=== PATIENT | female | born 1955 | race Caucasian/White ===

== ENCOUNTER → 2019-04-05 | Outpatient (CLI) | payer MEDICARE, OTHER ==
[2019-04-05 19:12] LABS: African American GFR (CKD) 89.7 (60.0-200.0); Albumin 4.5 g/dL (3.80-4.90); Albumin/Globulin Ratio 2.25 (1.60-3.17); Anion Gap 8.6 mmol/L (4.00-12.00); BUN/Creat Ratio 21.25 Ratio (12.00-20.00); Calcium 9.5 mg/dL (8.7-10.3); Carbon Dioxide 26.4 mmol/L (21.6-31.8); Chol/HDL Ratio 4.45; LDL Cholesterol,Calculated 166.6 mg/dL (0.0-131.0); Non-African American GFR(CKD) 77.4 (60.0-200.0); Potassium 4.8 mmol/L (3.5-5.5); Total Bilirubin 0.6 mg/dL (0.2-1.2); Total Protein 6.5 g/dL (6.2-8.2); VLDL Calculation 26.4 mg/dL (5.00-40.00)
[2019-04-05 19:19] LABS: T4, Free (Free Thyroxine) 1.6 ng/dL (0.80-1.80)
== END | disposition home or self-care (01) ==
LOC: LABWHC1 12:27
PROVIDERS: ATTEND Family Medicine
DX: E03.9 Hypothyroidism, unspecified (principal); E78.5 Hyperlipidemia, unspecified
CPT/HCPCS: 36415; 80053; 80061; 84439; 84443

== ENCOUNTER → 2019-04-10 | Outpatient (CLI) | payer MEDICARE, OTHER ==
[2019-04-10 11:59] LABS: HCT 41.4 % (34.0-46.0); HGB 13.7 gm/dL (11.4-16.0); MCH 30.8 pg (25.0-35.0); MCHC 33.1 g/dL (31.0-37.0); MCV 93.1 fL (80.0-100.0); Mean Platelet Volume 7.4; Platelet Count 215 k/uL (150-450); RBC 4.44 m/uL (3.80-5.40); RDW 13.4 % (11.5-15.5); WBC 8.4 k/uL (3.8-10.6)
[2019-04-10 12:09] LABS: INR 0.9 (<1.2); Partial Thromboplastin Time 23.8 sec (22.0-30.0); Prothrombin Time 10.2 sec (9.0-12.0)
[2019-04-10 12:22] LABS: Appearance,Urine Clear (Clear); Bacteria,Urine Occasional /hpf; Bilirubin,Urine Negative (Negative); Blood,Urine Negative (Negative); Color,Urine Light Yellow; Glucose,Urine (UA) Negative (Negative); Ketones,Urine Negative (Negative); Leukocyte Esterase,Urine Moderate (Negative); Mucus,Urine Rare /hpf; Nitrite,Urine Negative (Negative); PH, Urine 5.5 (5.0-8.0); Protein,Urine Negative (Negative); RBC,Urine 2 /hpf (0-5); Specific Gravity,Urine 1.008 (1.001-1.035); Squamous Epithelial Cell,Urine 1 /hpf (0-4); Urobilinogen,Urine <2.0 mg/dL (<2.0); WBC,Urine 4 /hpf (0-5)
[2019-04-10 13:17] LABS: ALT 20 U/L (9-52); AST 27 U/L (14-36); African American GFR (CKD) >90 (>60 ml/min/1.73 sqM); Albumin 4.5 g/dL (3.5-5.0); Alkaline Phosphatase 70 U/L (38-126); Anion Gap 10 mmol/L; Blood Urea Nitrogen 19 mg/dL (7-17); Calcium 9.7 mg/dL (8.4-10.2); Carbon Dioxide 24 mmol/L (22-30); Chloride 105 mmol/L (98-107); Glucose 95 mg/dL (74-99); Potassium 5.2 mmol/L (3.5-5.1); Sodium 139 mmol/L (137-145); Total Bilirubin 0.8 mg/dL (0.2-1.3); Total Protein 7.9 g/dL (6.3-8.2)
== END | disposition home or self-care (01) ==
LOC: LABPAT 10:48
PROVIDERS: ATTEND Orthopaedic Surgery Sports Medicine
DX: Z01.812 Encounter for preprocedural laboratory examination (principal)
CPT/HCPCS: 80053; 81001; 85027; 85610; 85730; 87070; 93005

== ENCOUNTER 2019-04-24 10:55 | Day surgery (SDC) | payer MEDICARE, OTHER ==
[~2019-04-24 10:55] MED LIST: ACETAMINOPHEN TAB 500 MG TAB PO ONE; CLINDAMYCIN 900 MG in DEXTROSE 5% IN WATER 50 ML IVPB ONE; GABAPENTIN 300 MG CAP PO ONE; LIDOCAINE 1% 20 ML VIAL (10MG/ML) FOR IV START INTRADERMA PRN; MELOXICAM 7.5 MG TAB PO ONE; MIDAZOLAM 2 MG/2 ML VIAL IV PRN; ONDANSETRON 4 MG/2 ML VIAL IVP ONE; ROPIVACAINE 246.25 MG, EPINEPHrine 0.5 MG, KETOROLAC 30 MG, cloNIDine HCL/PF 80 MCG, WA... MISCELLANE ONE; TRANEXAMIC ACID 1,000 MG in SODIUM CHLORIDE 0.9% 100 ML IVPB ONE; fentaNYL (PF) 50 MCG/ML 2 ML AMP IV PRN; fentaNYL (PF) 50 MCG/ML 2 ML AMP IVP PRN
[2019-04-24] MEDS: LACTATED RINGERS 1,000 ML IV SCH ×2 (11:37→17:01)
[2019-04-24] MEDS ORDERED: MIDAZOLAM 2 MG/2 ML VIAL ONE (12:36)
[2019-04-24] MEDS ORDERED: fentaNYL (PF) 50 MCG/ML 2 ML AMP ONE (12:36)
[2019-04-24] MEDS ORDERED: MORPHINE SULFATE (PF) 0.3 MG/0.3 ML SYR ONE (12:36)
[2019-04-24] MEDS ORDERED: SODIUM CHLORIDE 0.9% 100 ML BAG ONE (12:36)
[2019-04-24] MEDS ORDERED: TRANEXAMIC ACID 1,000 MG/10 ML VIAL ONE (12:36)
[2019-04-24] MEDS ORDERED: hydrOXYzine PAMOATE 25 MG CAP PO PRN (12:40)
[2019-04-24] MEDS ORDERED: traMADol 50 MG TAB PO PRN (12:40)
[2019-04-24] MEDS ORDERED: ACETAMINOPHEN TAB 325 MG TAB PO PRN (12:40)
[2019-04-24] MEDS ORDERED: ONDANSETRON 4 MG/2 ML VIAL IVP PRN ×2 (12:40→16:27)
[2019-04-24] MEDS ORDERED: TEMAZEPAM 15 MG CAP PO PRN (12:40)
[2019-04-24] MEDS ORDERED: MAGNESIUM HYDROXIDE 2,400 MG/10 ML CUP PO PRN (12:40)
[2019-04-24] MEDS ORDERED: BISACODYL 10 MG SUPP RECTAL PRN (12:40)
[2019-04-24] MEDS ORDERED: HYDROmorphone 0.5 MG/0.5 ML SYRINGE IVP PRN ×3 (12:40)
[2019-04-24] MEDS ORDERED: DIAZEPAM 5 MG TAB PO PRN (12:40)
[2019-04-24] MEDS ORDERED: NA PHOS,M-B/NA PHOS,DI-BA 133 ML ENEMA RECTAL PRN (12:40)
[2019-04-24] MEDS ORDERED: NALOXONE 0.4 MG/ML 1 ML VIAL IV PRN ×2 (12:40→16:27)
[2019-04-24] MEDS ORDERED: HYDROcodone/APAP 7.5-325MG 1 EACH TAB PO PRN ×2 (12:40→12:44)
[2019-04-24] MEDS ORDERED: LACTATED RINGERS 1,000 ML IV ONE (13:15)
[2019-04-24] MEDS ORDERED: VANCOMYCIN IV PER PHARMACY 1 EACH MISC MISCELLANE PRN (14:42)
--- NOTE | 2019-04-24 15:22 | XR ---
EXAMINATION TYPE: XR knee limited LT DATE OF EXAM: 04/24/2019 CLINICAL HISTORY: Left knee pain and arthritis status post total knee replacement. TECHNIQUE: Portable AP and crosstable lateral views of the left knee are obtained immediately postop eratively. COMPARISON: None FINDINGS: Metallic hardware from total left knee arthroplasty is seen and appears satisfactory in al ignment and position. There is evidence of recent surgery with diffuse subcutaneous gas and soft tis bryon swelling noted. IMPRESSION: METALLIC HARDWARE FROM TOTAL LEFT KNEE ARTHROPLASTY IS SATISFACTORY IN ALIGNMENT.
[2019-04-24] MEDS ORDERED: diphenhydrAMINE 50 MG/ML 1 ML VIAL IVP PRN (16:27)
[2019-04-24] MEDS ORDERED: NALBUPHINE 10 MG/ML (1 ML AMP) IV PRN (16:27)
[2019-04-24 17:05] VITALS: BMI 36.4
[2019-04-24] MEDS ORDERED: VANCOMYCIN 1,250 MG in SODIUM CHLORIDE 0.9% 250 ML IVPB ONE (21:00)
[2019-04-24] MEDS ORDERED: SENNOSIDES-DOCUSATE SODIUM 1 EACH TAB PO SCH (21:00)
[2019-04-24] MEDS: ASPIRIN 325 MG TAB PO SCH (21:02)
[2019-04-25] MEDS: LACTATED RINGERS 1,000 ML IV SCH ×3 (01:49→10:54)
--- NOTE | 2019-04-25 05:34 | OP ---
OPERATIVE REPORT DATE OF SURGERY: 04/24/2019 SURGEON: Simon Michel MD. MACHINIST FIRST CLASS: STUART Cleveland. PREOPERATIVE DIAGNOSIS: Left knee osteoarthrosis. POSTOPERATIVE DIAGNOSIS: Left knee osteoarthrosis. OPERATION: Left total knee arthroplasty. ANESTHESIA: Spinal sedation. ESTIMATED BLOOD LOSS: 100 mL. TOURNIQUET TIME: 58 minutes at 250 mmHg. COMPLICATIONS: None apparent. DRAINS: None. DISPOSITION: Postanesthesia care unit. INDICATIONS: Zainab is a very pleasant 63-year-old female with longstanding history of left knee pain. History and physical examination are consistent with advanced left knee osteoarthrosis. She has been through significant nonoperative management up to this point. Further treatment options were discussed and she has decided to go forward with the left total knee arthroplasty. The risks of procedure were discussed with her in detail. These risks include, but are not limited to risk of infection, nerve damage, bleeding, pain, and a small risk of deep vein thrombosis which could lead to fatal pulmonary embolism. There is also risk of loosening of the implant which could require revision operation. The patient understands these risks. All of her questions were answered to her satisfaction. An appropriate informed consent was obtained. DESCRIPTION OF THE PROCEDURE: The patient was identified in the preoperative holding area. Surgical site was marked by both the patient and myself. She was given 900 mg of clindamycin IV for prophylactic purposes. She was then transferred to the operative suite. She was placed supine on the operating room table. Spinal anesthetic was then administered and dosed per the anesthesia department without apparent complication. Examination under anesthesia was then performed. The patient was 2 to 3 degrees shy of full extension. She had 90 degrees of flexion. The medial collateral ligament, lateral collateral ligament and posterior cruciate ligaments were stable. Tourniquet was then placed high on the left upper thigh well-padded in preparation for surgery. The patient's left lower extremity was then prepped and draped in usual sterile fashion. Standard surgical pause was undertaken to ensure that we were operating on the correct site and that appropriate preoperative antibiotics had been given. All staff were in agreement and we proceeded. The outlines of the patella were marked surgical pen. A planned 12 cm vertical incision centered over the patella and was marked with surgical pen. Leg was exsanguinated with an Esmarch dressing. The knee was then flexed and the tourniquet inflated to 250 mmHg. The total tourniquet time for the procedure was 58 minutes. Incision was then made with a 10 blade scalpel. Dissection carried down sharply overlying fascia. Great care was taken to minimize the skin flaps. The knee was then exposed using a standard medial parapatellar approach. A small cuff of quadriceps tendon was then left for suturing. She was in a bit of varus preoperatively. A standard medial release was then made. The superficial medial collateral ligament was dissected off the bone around to the posterior aspect of the proximal tibia. The medial meniscus was then excised as well. The lateral meniscus was also released anteriorly. The leg was then externally rotated. The patella was everted. The knee was flexed. The retractor was then placed to protect the collateral ligaments. I then proceeded to remove the infrapatellar fat pad. This was excised sharply tangentially with the fibers of the patellar tendon. I then proceeded to remove peripheral osteophytes. This was done with a rongeur. I then proceeded with the distal femoral resection. She did have near full extension. A planned 9 mm resection was then done. The femoral canal was then entered in midline of the femur approximately 10 mm anterior to the origin of the posterior cruciate ligament. The leesa was then advanced down the center of the femur and placed intramedullary. Based on the preoperative radiographs, the angle between the anatomic and mechanical axis of the femur was approximately 4 to 5 degrees. The valgus angle of this femoral cutting guide was then set at 4 degrees for the left knee. This femoral cutting guide was then advanced over the intramedullary leesa. This was seated firmly against the femur. I then as mentioned planned to take 9 mm off the distal femur. The cutting block was then secured onto the femur with pins. The jig was then removed and the distal femoral cut was made through the slot of the block. The pins were then removed. The distal femoral cutting block was removed. The accuracy of the distal femoral cuts was checked with 2 flat bars. I then proceeded with the femoral sizing. The posterior referencing sizing guide was held firmly against the resected distal surface of the femur. The posterior condyles were resting on the posterior plane of the guide. The sizing stylus was then placed on the anterior femur. The size was measured as a size 5. I then assessed for femoral rotation. Plan was for 3 degrees of external rotation. Three degrees of external rotation was placed onto the jig. These holes were then marked. I then confirmed the rotation by 3 separate methods. This was done using epicondylar axis as well as Whitesides line and posterior referencing. It was deemed that the external rotation was proper. I then went forward with placing the femoral cutting block. This was placed over the previously placed pin holes. The Uriel wing was then placed onto the anterior slots to ensure that we would not notch the anterior femur with the anterior femoral cut. I then proceeded with the anterior femoral cut. This was flushed with the anterior cortex of the femur. Posterior cuts were then made followed by the anterior chamfer cut, then the posterior chamfer cut. The cutting block was then removed. Throughout the resection, the collateral ligaments were protected with retractors. I then placed a trial size 5 femur. It fit very nice medial-lateral and fit flush with the distal end of the femur. The drill holes were then made. I then proceeded with the tibial cut. I planned for cruciate-retaining knee. The guide was placed and set for varus, valgus and for slope. The height set for approximate 2 mm resection from the medial tibial plateau which was the lower side. I was happy with the alignment and the amount of resection. The cutting block was then pinned to the proximal tibia. The alignment leesa was removed. The proximal tibia was resected with a reciprocating saw. Again this was done with retractors protecting the collateral ligaments as well as the posterior cruciate ligament. I then proceeded to evaluate the flexion and extension gaps. A 10 mm block was then placed. The flexion and extension gaps were equal. I then proceed with resection of posterior osteophytes. She had very minimal posterior osteophytes. This was done using a curved osteotome. This resected the posterior osteophytes and posterior capsule stripping was done off the posterior aspect of the femur at this time. The osteophytes were removed. I then proceeded with resection of the patella. The thickness of the patella was measured using the caliper. The thickness was 22 mm. The thickness of the anticipated patellar dome was taken into account. The resection was then performed and confirmed to be equal in 4 quadrants using a caliper. Approximately 14 mm of bone remained after resection. A 29 x 8 mm standard patellar trial was then placed. The holes were drilled. The trial was then placed. I then proceeded with the sizing tibial plate. A size C tibial plate fit very nicely. I then placed the trial femur, the tibial tray and the patellar button. A 10 mm trial tibial insert was also placed. The components fit very nicely. She had full extension and flexion. The extension and flexion gaps were equal and stable to both varus and valgus stress. The patella tracked appropriately. The tibial tray rotation was then marked with a Bovie. This was externally rotated properly. I then proceeded with tibial preparation. I first drilled the femoral holes, removed femoral component. The tibial tray was then set for proper external rotations as well as mediolateral placement onto the tibia. It was then pinned into place. I then proceeded with punching the keel. I then decided to proceed with cementing of all of our components. The knee was thoroughly irrigated with sterile saline solution via pulse lavage. The lateral genicular artery was identified and cauterized. All blood was removed from the bone of the tibia, femur and patella with pulse lavage. I then proceeded with cementing. Two packs of antibiotic bone cement prepared on the back table by the surgical scheduler. I then proceed with cementing the tibia first. The cement was impacted into the keel as well as deeply seated in the bone. A second coat of cement was then placed. The tibia was then impacted into place. Excess cement was removed with Cushings and jokers. I then proceeded with cementing of the femoral component. The femoral component was also cemented using standard technique. Excess cement was removed. A 10 mm trial insert was placed into the knee. It was brought in full extension with a constant axial load placed until the cement had hardened. The patellar component was then cemented. This was held firmly with a compressive device until the cement had dried. When the cement had dried, the knee was taken out of extension. All excess cement was removed from around the prosthesis. I then trialed the knee with a 10 mm insert. The flexion and extension gaps were appropriate. The knee was stable. It came into full extension. I decided to go forward with a 10 mm cross-linked cruciate-retaining tibial insert. Polyethylene was then placed on the tibial tray and locked into place. The knee was then reduced. The knee was again further irrigated with sterile saline solution with antibiotic added. The tourniquet was then deflated. Total tourniquet time for the procedure was 58 minutes at 250 mmHg. Final components were a Ryan Persona size 5 cruciate-retaining femoral component, a size C tibial tray and a 10 mm medial congruent cruciate-retaining polyethylene insert and a 29 x 8 mm patella. I then proceeded with closure. Again, the knee was thoroughly irrigated. The quadriceps tendon and the medial retinaculum were reapproximated with #2 Ethibond suture. The extensor mechanism was then closed with a running #2 Quill suture. Subcutaneous tissues were then closed with 2-0 Vicryl interrupted suture. The skin was closed with a running 3-0 Quill suture. Dermabond was applied to the incision. Sterile compressive dressing was then applied. All sponge and needle counts were deemed correct prior to closure. The patient tolerated the procedure without apparent complication. She was transferred to recovery room in stable condition. MMODL / IJN: [id number] /
[2019-04-25 07:47] VITALS: PULSE 69; RESP 18; TEMP 97.9
[2019-04-25 08:34] LABS: Basophils % (A) 0 %; Eosinophils # (A) 0.1 k/uL (0-0.7); Eosinophils % (A) 1 %; HCT 35.4 % (34.0-46.0); HGB 11.3 gm/dL (11.4-16.0); Lymphocytes # (A) 1.3 k/uL (1.0-4.8); Lymphocytes % (A) 13 %; MCH 30.9 pg (25.0-35.0); MCHC 32.1 g/dL (31.0-37.0); MCV 96.5 fL (80.0-100.0); Mean Platelet Volume 7.3; Monocytes # (A) 0.4 k/uL (0-1.0); Monocytes % (A) 4 %; Neutrophils # (A) 7.9 k/uL (1.3-7.7); Neutrophils % (A) 81 %; Platelet Count 198 k/uL (150-450); RBC 3.67 m/uL (3.80-5.40); RDW 13.7 % (11.5-15.5); WBC 9.8 k/uL (3.8-10.6)
[2019-04-25] MEDS: ASPIRIN 325 MG TAB PO SCH (08:34)
--- NOTE | 2019-04-25 10:26 | P.DS ---
Providers Attending physician: Simon Michel Consults: 04/24/19 12:40 Consult Physician Routine Consulting Provider: Bran Paz Consult Reason/Comments: post op medical management Do you want consulting provider notified?: Yes Primary care physician: Janelle Gan MD - Discharge Diagnosis(es) (1) S/P total knee arthroplasty Patient was admitted to the OR on 04/24/2019 to undergo a left total knee arthr oplasty. She had failed conservative measures as an outpatient and desired to proceed with elective surgery after given informed consent. She underwent the above procedure which she tolerated well without complication. Postoperative hospital course has remained without complication. On day of discharge she is afebrile, vital signs stable, labs within acceptable ranges, tolerating by mouth meds and diet, voiding without difficulty, positive flatus, denies abdominal pain or calf pain, pain is controlled on oral pain medication and has no new complaints. Wound is benign, neurovascular status is intact, calf is soft and nontender, abdomen soft and nontender. Review of systems is negative for numbness, tingling, fever, chills, chest pain, shortness of breath, nausea, vomiting, dizziness, headaches, slurred speech or other. Current Visit: Yes Status: Acute Priority: Medium Procedures: Left TKA Patient Condition at Discharge: Good Plan - Discharge Summary Discharge Rx Participant: Yes New Discharge Prescriptions: New Aspirin 325 mg PO BID #60 tab Docusate [Colace] 100 mg PO BID #60 capsule HYDROcodone/APAP 7.5-325MG [[place] 7.5-325] 1 - 2 each PO Q6HR PRN #56 tab PRN Reason: Pain No Action Levothyroxine Sodium [Synthroid] 137 mcg PO DAILY Atorvastatin [Lipitor] 10 mg PO DAILY Sulfamethox-Tmp 400-80Mg [Bactrim SS 400-80 mg] 1 tab PO BID Discharge Medication List Atorvastatin [Lipitor] 10 mg PO DAILY 04/22/19 [History] Levothyroxine Sodium [Synthroid] 137 mcg PO DAILY 04/22/19 [History] Sulfamethox-Tmp 400-80Mg [Bactrim SS 400-80 mg] 1 tab PO BID 04/24/19 [History] Aspirin 325 mg PO BID #60 tab 04/25/19 [Rx] Docusate [Colace] 100 mg PO BID #60 capsule 04/25/19 [Rx] HYDROcodone/APAP 7.5-325MG [[place] 7.5-325] 1 - 2 each PO Q6HR PRN #56 tab 04/25/19 [Rx] Follow up Appointment(s)/Referral(s): [facility] [NON-STAFF] - As Needed (walker) Simon Michel MD [STAFF PHYSICIAN] - 1 Week Activity/Diet/Wound Care/Special Instructions: Keep wound clean and dry Take meds as directed Follow-up with Dr. Michel in office Weight bear as tolerated May shower in 3 days if no bleeding Discharge Disposition: HOME WITH HOME HEALTH SERVICES
--- NOTE | 2019-04-25 10:43 | P.CONS ---
History of Present Illness - Reason for Consult Consult date: 04/25/19 HLD Requesting physician: Simon Michel - Chief Complaint left knee pain - History of Present Illness Patient is a 63-year-old female past medical history of morbid obesity with BMI 36.6, osteoarthritis, prior left knee meniscal tear, hypothyroidism, and dyslipidemia who presented for elective left total knee arthroplasty. She had been trying conservative management such as pain medications, cortisone injection, and physical therapy but her pain continued to worsen. She underwent left total knee arthroplasty with Dr. Michel on 04/24 without any immediate pos toperative complications. After being admitted to the surgical floor she is developed nausea and vomiting. Patient seen and examined at bedside. She states that every time she sits up she gets dizzy, becomes nauseous and then has an episode of vomiting. After she vomits once the feeling has resolved and she is back to baseline. She does report that she recently restarted her cholesterol medications approximately 10 days ago. She also had an episode of food poisoning with diarrhea but no vo miting approximately 2 weeks ago. She is otherwise not had any other incidents of nausea, vomiting, or diarrhea. When she sits for and she denies any fainting feeling, chest pain, shortness of breath, or abdominal pain. She lives at home with her and does not use any assistive devices at baseline. Review of Systems Pertinent positives and negatives as discussed in HPI, a complete review of systems was performed and all other systems are negative. Past Medical History Past Medical History: Hyperlipidemia, Osteoarthritis (OA), Thyroid Disorder History of Any Multi-Drug Resistant Organisms: None Reported Past Surgical History: Section Additional Past Surgical History / Comment(s): c-sect x3. COLONOSCOPY. DEVIA DANIA SEPTUM SX. Left knee arthroscopy with repair of meniscal tear Past Anesthesia/Blood Transfusion Reactions: No Reported Reaction Past Psychological History: No Psychological Hx Reported Smoking Status: Never smoker Past Alcohol Use History: None Reported Past Drug Use History: None Reported Additional History: Lives at home with her , no assistive devices - Past Family History Father Family Medical History: Cancer Additional Family Medical History / Comment(s): colon cancer Medications and Allergies Home Medications Medication Instructions Recorded Confirmed Type Atorvastatin [Lipitor] 10 mg PO DAILY 04/22/19 04/22/19 History Levothyroxine Sodium [Synthroid] 137 mcg PO DAILY 04/22/19 04/22/19 History Sulfamethox-Tmp 400-80Mg [Bactrim 1 tab PO BID 04/24/19 04/24/19 History SS 400-80 mg] Aspirin 325 mg PO BID #60 tab 04/25/19 Rx Docusate [Colace] 100 mg PO BID #60 capsule 04/25/19 Rx HYDROcodone/APAP 7.5-325MG [[place] 1 - 2 each PO Q6HR PRN #56 tab 04/25/19 Rx 7.5-325] Allergies Allergy/AdvReac Type Severity Reaction Status Date / Time Penicillins Allergy Anaphylaxis Verified 04/22/19 08:51 promethazine [From Phenergan] Allergy Unknown Verified 04/24/19 11:24 Childhood meperidine [From Demerol] AdvReac Hallucinati Verified 04/24/19 11:23 ons Physical Exam Osteopathic Statement: *. No significant issues noted on an osteopathic structural exam other than those noted in the History and Physical/Consult. Vitals: Vital Signs Temp Pulse Resp BP BP Pulse Ox 04/25/19 07:00 97.9 F 69 18 115/80 96 04/25/19 04:58 98 04/25/19 04:53 63 04/25/19 04:52 98 04/25/19 01:27 12 04/25/19 00:17 97.6 F 62 14 111/58 99 04/24/19 19:36 98/63 04/24/19 19:31 55 L 12 95/65 98 04/24/19 19:05 96.2 F L 04/24/19 18:23 54 L 96/62 96 04/24/19 18:08 54 L 95/61 96 04/24/19 17:55 96 04/24/19 17:44 57 L 101/67 98 04/24/19 17:38 52 L 99/65 98 04/24/19 17:29 54 L 99/65 04/24/19 17:14 52 L 97/63 97 04/24/19 17:08 57 L 92/62 96 04/24/19 16:55 16 04/24/19 16:54 60 16 102/64 94 L 04/24/19 15:46 66 16 99/65 95 04/24/19 15:30 64 16 99/66 95 04/24/19 15:15 63 16 119/66 99 04/24/19 15:00 61 16 112/55 99 04/24/19 14:43 96.8 F L 79 16 113/56 95 04/24/19 11:24 97.9 F 70 16 116/63 95 Intake and Output 04/24/19 04/25/19 04/25/19 22:59 06:59 14:59 Intake Total 50 10 425 Balance 50 10 425 Intake: IV 50 Oral 10 425 Other: Voiding Method Toilet # Voids 1 1 General: non toxic, no distress, appears at stated age, obese Derm: no unusual rashes/lesions no unusual ecchymoses, warm, dry Head: atraumatic, normocephalic, symmetric Eyes: EOMI, no lid lag, anicteric sclera, pupils equal round reactive to light ENT: Nose and ears atraumatic, no thrush, no pharyngeal erythema Neck: No thyromegaly, no cervical lymphadenopathy, trachea midline, supple Mouth: no lip lesion, mucus membranes moist Cardiovascular: S1S2 reg, no murmur, positive posterior tibial pulse bilateral, , capillary refill less than 2 seconds Lungs: Decreased breath sounds bilateral, no rhonchi, no rales , no accessory muscle use Abdominal: soft, nontender to palpation, no guarding, no appreciable organome marleny, normal bowel sounds Ext: no gross muscle atrophy, muscle strength 5 out of 5 in upper extremities grossly, no contractures, , and dressing over left knee with mild edema Neuro: CN II-XI grossly intact, light touch intact all 4 extremities, finger to nose within normal limits, Psych: Alert, oriented, appropriate affect Results CBC & Chem 7: 04/25/19 07:40 04/24/19 11:35 Labs: Abnormal Lab Results - Last 24 Hours (Table) 04/25/19 Range/Units 07:40 RBC 3.67 L (3.80-5.40) m/uL Hgb 11.3 L (11.4-16.0) gm/dL Neutrophils # 7.9 H (1.3-7.7) k/uL Assessment and Plan Assessment: Postoperative nausea and vomiting -Try Zofran -Check orthostatic vitals -Not likely due to narcotics Left knee arthritis s/p TKA -Controlled -PT/OT -Plans for outpatient physical therapy Dyslipidemia -Continue statin Hypothyroidism -Continue with Synthroid Medically optimized for discharge once nausea and vomiting resolved. If orthostatics positive for group 1 L fluid bolus and recheck. Follow-up with Dr. Gan in 1 week.
[2019-04-25 10:54] VITALS: BP 113/68
[2019-04-26] MEDS ORDERED: MULTIVITAMINS, THERA 1 EACH TAB PO SCH (12:00)
== END 2019-04-25 13:12 | disposition home health service (06) ==
LOC: OR 10:55 → 4SSUR 16:10 → OR 04-25 13:12
PROVIDERS: ATTEND Orthopaedic Surgery Sports Medicine
DX: M17.12 Unilateral primary osteoarthritis, left knee (principal); M25.762 Osteophyte, left knee; I10 Essential (primary) hypertension; E78.5 Hyperlipidemia, unspecified; E03.9 Hypothyroidism, unspecified; R63.5 Abnormal weight gain; Z68.36 Body mass index [BMI] 36.0-36.9, adult; Z97.3 Presence of spectacles and contact lenses; Z83.3 Family history of diabetes mellitus; Z82.49 Family history of ischemic heart disease and other diseases of the circulatory system; Z79.1 Long term (current) use of non-steroidal anti-inflammatories (NSAID); Z79.82 Long term (current) use of aspirin; Z79.3 Long term (current) use of hormonal contraceptives; Z79.891 Long term (current) use of opiate analgesic; Z79.52 Long term (current) use of systemic steroids; Z79.899 Other long term (current) drug therapy; Z80.0 Family history of malignant neoplasm of digestive organs; Z88.5 Allergy status to narcotic agent; Z88.0 Allergy status to penicillin; Z88.8 Allergy status to other drugs, medicaments and biological substances
CPT/HCPCS: 97161; 84132; 85025; 88300; 73560; 27447; C1776; C1713; J2250; J0171; J3370; J2405; J2274; J3010; J1885; J2795; J0735

== ENCOUNTER → 2019-05-03 | Outpatient (CLI) | payer MEDICARE, OTHER ==
--- NOTE | 2019-05-14 10:54 | MM ---
Reason for exam: screening (asymptomatic). Last mammogram was performed 2 years and 7 months ago. History: Patient is postmenopausal. Physical Findings: A clinical breast exam by your physician is recommended on an annual basis and results should be correlated with mammographic findings. MG 3D Screening Mammo W/Cad Bilateral CC and MLO view(s) were taken. Prior study comparison: October 14, 2016, mammogram, performed at [place]. September 25, 2015, mammogram, performed at [place]. Benign appearing bilateral calcifications. No suspicious abnormality. No significant changes when compared with prior studies. ASSESSMENT: Benign, BI-RAD 2 RECOMMENDATION: Routine screening mammogram of both breasts in 1 year.
== END | disposition home or self-care (01) ==
LOC: RADMAMWWP 10:11
PROVIDERS: ATTEND Family Medicine
DX: Z12.31 Encounter for screening mammogram for malignant neoplasm of breast (principal)
CPT/HCPCS: 77063; 77067

== ENCOUNTER → 2021-02-24 | Outpatient (CLI) | payer MEDICARE, OTHER ==
--- NOTE | 2021-02-24 16:05 | BD ---
EXAMINATION TYPE: Axial Bone Density DATE OF EXAM: 02/24/2021 COMPARISON: NONE CLINICAL HISTORY: 65 YR OLD FEMALE.....ICD-10 CODE: M89.9 DISORDER OF BD Height: 59 Weight: 198 FRAX RISK QUESTIONS: History of Fracture in Adulthood: YES RISK FACTORS HISTORY OF: Spine Fracture: THORACIC SPINE FXS AN ADULT History of Wrist Fracture: LT ARM, IN 3RD GRADE Postmenopausal woman: YES AT 50 YRS OLD Lost more than 2 inches in height since high school: YES Hyperparathyroidism: NO Adrenal Insufficiency: NO MEDICATIONS: Thyroid Medications: YES, SYNTHROID, FOR 25 YRS Additional Medications: PROZAC, STATIN FOR CHOLESTEROL, VIT D AND VIT B12, Additional History: ANXIETY, CHOLESTEROL, THYROID, ARTHRITIS, TKR, EXAM MEASUREMENTS: Bone mineral densitometry was performed using the Topic System. Bone mineral density as measured about the Lumbar spine is: ----- L1-L4(G/cm2): 1.244 T Score Values are as follows: ----- L1: 0.1 ----- L2: 0.1 ----- L3: 0.6 ----- L4: 1.2 ----- L1-L4: 0.5 Bone mineral density FIRST BONE DENSITY AT [facility] Bone mineral density about the R hip (g/cm2): 1.248 Bone mineral density about the L hip (g/cm2): 1.162 T Score values are as follows: -----R Neck: 0.8 -----L Neck: 0.0 -----R Total: 1.9 -----L Total: 1.2 Bone mineral density FIRST BONE DENSTIY STUDY AT [facility] FRAX%s: THERE IS A 10.1% CHANCE FOR A MAJOR OSTEOPOROTIC FX AND A 0.3% FOR HIP......PROBABILITY FOR FX IN 10 YRS TIME IMPRESSION: Normal (Values between +1 and -1 indicate normal bone mass). Consider repeating this study in 5 year s or sooner if there is some new clinical indication. NOTE: T-SCORE=SD OF THE YOUNG ADULT MEAN.
--- NOTE | 2021-03-01 12:34 | MM ---
Reason for exam: screening (asymptomatic). Last mammogram was performed 1 year and 10 months ago. History: Patient is postmenopausal. Physical Findings: A clinical breast exam by your physician is recommended on an annual basis and results should be correlated with mammographic findings. MG 3D Screening Mammo W/Cad Bilateral CC and MLO view(s) were taken. Prior study comparison: May 03, 2019, bilateral MG 3d screening mammo w/cad. October 14, 2016, mammogram, performed at [place]. There are scattered fibroglandular densities. No significant changes when compared with prior studies. ASSESSMENT: Benign, BI-RAD 2 RECOMMENDATION: Routine screening mammogram of both breasts in 1 year.
== END | disposition home or self-care (01) ==
LOC: RADBDWWP 12:33
PROVIDERS: ATTEND Internal Medicine
DX: Z12.31 Encounter for screening mammogram for malignant neoplasm of breast (principal); Z78.0 Asymptomatic menopausal state
CPT/HCPCS: 77063; 77067; 77080

== ENCOUNTER 2021-12-17 12:58 | Emergency (ER) | payer MEDICARE, OTHER ==
[2021-12-17 14:26] LABS: Amorphous Sediment,Urine Occasional /hpf; Appearance,Urine Clear (Clear); Bacteria,Urine Occasional /hpf; Bilirubin,Urine Negative (Negative); Blood,Urine Small (Negative); Color,Urine Yellow; Glucose,Urine (UA) Negative (Negative); Ketones,Urine Negative (Negative); Leukocyte Esterase,Urine Moderate (Negative); Mucus,Urine Rare /hpf; Nitrite,Urine Negative (Negative); Protein,Urine Negative (Negative); RBC,Urine 2 /hpf (0-5); Specific Gravity,Urine 1.015 (1.001-1.035); Squamous Epithelial Cell,Urine 1 /hpf (0-4); WBC,Urine 11 /hpf (0-5)
[2021-12-17] MEDS ORDERED: ONDANSETRON 4 MG/2 ML VIAL IVP STA (15:39)
[2021-12-17] MEDS ORDERED: SODIUM CHLORIDE 0.9% 1,000 ML IV STA (15:39)
--- NOTE | 2021-12-17 16:39 | ED ---
Abdominal Pain HPI - General Chief Complaint: Abdominal Pain Stated Complaint: Abd Pain Time Seen by Provider: 12/17/21 15:23 Source: patient, family, RN notes reviewed Limitations: no limitations - History of Present Illness Initial Comments: This is a 66-year-old female who presents to the emergency department for abdominal pain. Symptoms began 2 days ago. States that she has right flank pain that wraps around into the right lower quadrant. She had similar symptoms back in August, which lasted a week. She was not evaluated at that time. She has had nausea but no vomiting. Denies any history of kidney stones, dysuria, or hematuria. Denies any fevers, chills, sore throat, cough, dyspnea, chest pain, palpitations, abdominal pain, nausea, vomiting, diarrhea, back pain, or headaches. MD Complaint: abdominal pain, flank pain Onset/Timin -: days(s) Location: R flank Radiation: RLQ - Related Data Home Medications Medication Instructions Recorded Confirmed Atorvastatin Calcium [Lipitor] 20 mg PO DAILY 12/17/21 12/17/21 Levothyroxine Sodium [Synthroid] 100 mcg PO DAILY 12/17/21 12/17/21 Previous Rx's Medication Instructions Recorded Doxycycline [Vibramycin] 100 mg PO BID 5 Days #10 capsule 12/17/21 Ondansetron Odt [Zofran Odt] 4 mg PO Q8HR PRN #10 tab 12/17/21 Allergies Allergy/AdvReac Type Severity Reaction Status Date / Time Penicillins Allergy Anaphylaxis Verified 12/17/21 17:22 promethazine [From Phenergan] Allergy Unknown Verified 12/17/21 17:22 meperidine [From Demerol] AdvReac Hallucinati Verified 12/17/21 17:22 ons Review of Systems ROS Statement: Those systems with pertinent positive or pertinent negative responses have been documented in the HPI. ROS Other: All systems not noted in ROS Statement are negative. Past Medical History Past Medical History: Thyroid Disorder History of Any Multi-Drug Resistant Organisms: None Reported Additional Past Surgical History / Comment(s): c-sect x3. COLONOSCOPY. DE VIATED SEPTUM SX. Left knee arthroscopy with repair of meniscal tear Past Psychological History: No Psychological Hx Reported Smoking Status: Never smoker Past Alcohol Use History: Rare Past Drug Use History: None Reported - Past Family History Father Additional Family Medical History / Comment(s): colon cancer General Exam Limitations: no limitations General appearance: alert, in no apparent distress Head exam: Present: atraumatic, normocephalic, normal inspection Respiratory exam: Present: normal lung sounds bilaterally. Absent: respiratory distress, wheezes, rales, rhonchi, stridor Cardiovascular Exam: Present: regular rate, normal rhythm, normal heart sounds. Absent: systolic murmur, diastolic murmur, rubs, gallop, clicks GI/Abdominal exam: Present: soft, tenderness (RLQ), normal bowel sounds. Absent: distended, guarding, rebound, rigid Back exam: Present: CVA tenderness (R). Absent: CVA tenderness (L) Neurological exam: Present: alert, oriented X3, CN II-XII intact Psychiatric exam: Present: normal affect, normal mood Skin exam: Present: warm, dry, intact, normal color. Absent: rash Course Vital Signs 12/17/21 12/17/21 13:04 18:47 Temperature 98.4 F 98.8 F Pulse Rate 80 65 Respiratory 18 16 Rate Blood Pressure 122/60 107/52 O2 Sat by Pulse 96 98 Oximetry Medical Decision Making - Medical Decision Making This is a 66-year-old female who presents to the emergency department for right lower quadrant pain. Lab work was nonactionable and urinalysis revealed a small amount of blood in the urine. Computed tomography scan of the abdomen and pelvis revealed a hiatal hernia but no acute abdominal pathologies, however it did note a right middle lobe pneumatic infiltrate. Findings were reviewed with the patient, and she did note that she had been experiencing a cough and some shortness of breath for the last 3 days. Discussed that this may be related to COVID or influenza, however she declined to be swabbed at this time, stating that she really just wanted to go home. Given the associated respiratory symptoms, will treat patient with a 5 day course of doxycycline. Prescription for Zofran and sent to the pharmacy as well in the event she experiences any additional nausea. We also discussed the frequent PVCs on her EKG. 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 States that she's had multiple EKGs without any abnormalities and notes that she sometimes feels palpitations. Advised that the EKGs are a small snapshot in time, and may not black pickler on intermittent findings like this. Her RN did note an irregular heartbeat on initial auscultation, with what appeared to sound like an extra beat. This was just prior to her EKG. When I had gone to auscultate the patient afterwards, the irregular heartbeat was no longer present. We discussed that she should follow up with her primary care provider next week to discuss a Holter monitor on an outpatient basis. Return precautions reviewed in depth, the patient is instructed to return to the emergency department with any new, worsening, or concerning symptoms. Patient verbalized understanding. This case was discussed in detail with the attending ED physician. Presentation, findings, and treatment plan discussed in detail as well. - Lab Data Result diagrams: 12/17/21 16:31 12/17/21 16:31 Lab Results 12/17/21 12/17/21 12/17/21 Range/Units 13:35 16:31 16:31 WBC 6.5 (3.8-10.6) k/uL RBC 4.40 (3.80-5.40) m/uL Hgb 13.2 (11.4-16.0) gm/dL Hct 41.9 (34.0-46.0) % MCV 95.3 (80.0-100.0) fL MCH 30.0 (25.0-35.0) pg MCHC 31.4 (31.0-37.0) g/dL RDW 13.2 (11.5-15.5) % Plt Count 195 (150-450) k/uL MPV 8.3 Neutrophils % 71 % Lymphocytes % 17 % Monocytes % 7 % Eosinophils % 3 % Basophils % 1 % Neutrophils # 4.7 (1.3-7.7) k/uL Lymphocytes # 1.1 (1.0-4.8) k/uL Monocytes # 0.4 (0-1.0) k/uL Eosinophils # 0.2 (0-0.7) k/uL Basophils # 0.0 (0-0.2) k/uL Sodium 137 (137-145) mmol/L Potassium 3.8 (3.5-5.1) mmol/L Chloride 102 (98-107) mmol/L Carbon Dioxide 27 (22-30) mmol/L Anion Gap 8 mmol/L BUN 18 H (7-17) mg/dL Creatinine 0.75 (0.52-1.04) mg/dL Est GFR (CKD-EPI)AfAm >90 (>60 ml/min/1.73 sqM) Est GFR (CKD-EPI)NonAf 82 (>60 ml/min/1.73 sqM) Glucose 105 H (74-99) mg/dL Calcium 8.4 (8.4-10.2) mg/dL Magnesium 2.0 (1.6-2.3) mg/dL Total Bilirubin 0.4 (0.2-1.3) mg/dL AST 23 (14-36) U/L ALT 15 (4-34) U/L Alkaline Phosphatase 64 (38-126) U/L Troponin I (0.000-0.034) ng/mL Total Protein 6.8 (6.3-8.2) g/dL Albumin 4.0 (3.5-5.0) g/dL Amylase 79 (30-110) U/L Lipase 105 (23-300) U/L Urine Color Yellow Urine Appearance Clear (Clear) Urine pH 6.0 (5.0-8.0) Ur Specific Blanco 1.015 (1.001-1.035) Urine Protein Negative (Negative) Urine Glucose (UA) Negative (Negative) Urine Ketones Negative (Negative) Urine Blood Small H (Negative) Urine Nitrite Negative (Negative) Urine Bilirubin Negative (Negative) Urine Urobilinogen 2.0 (<2.0) mg/dL Ur Leukocyte Esterase Moderate H (Negative) Urine RBC 2 (0-5) /hpf Urine WBC 11 H (0-5) /hpf Ur Squamous Epith Cells 1 (0-4) /hpf Amorphous Sediment Occasional H (None) /hpf Urine Bacteria Occasional H (None) /hpf Urine Mucus Rare H (None) /hpf 12/17/21 Range/Units 16:31 WBC (3.8-10.6) k/uL RBC (3.80-5.40) m/uL Hgb (11.4-16.0) gm/dL Hct (34.0-46.0) % MCV (80.0-100.0) fL MCH (25.0-35.0) pg MCHC (31.0-37.0) g/dL RDW (11.5-15.5) % Plt Count (150-450) k/uL MPV Neutrophils % % Lymphocytes % % Monocytes % % Eosinophils % % Basophils % % Neutrophils # (1.3-7.7) k/uL Lymphocytes # (1.0-4.8) k/uL Monocytes # (0-1.0) k/uL Eosinophils # (0-0.7) k/uL Basophils # (0-0.2) k/uL Sodium (137-145) mmol/L Potassium (3.5-5.1) mmol/L Chloride (98-107) mmol/L Carbon Dioxide (22-30) mmol/L Anion Gap mmol/L BUN (7-17) mg/dL Creatinine (0.52-1.04) mg/dL Est GFR (CKD-EPI)AfAm (>60 ml/min/1.73 sqM) Est GFR (CKD-EPI)NonAf (>60 ml/min/1.73 sqM) Glucose (74-99) mg/dL Calcium (8.4-10.2) mg/dL Magnesium (1.6-2.3) mg/dL Total Bilirubin (0.2-1.3) mg/dL AST (14-36) U/L ALT (4-34) U/L Alkaline Phosphatase (38-126) U/L Troponin I <0.012 (0.000-0.034) ng/mL Total Protein (6.3-8.2) g/dL Albumin (3.5-5.0) g/dL Amylase (30-110) U/L Lipase (23-300) U/L Urine Color Urine Appearance (Clear) Urine pH (5.0-8.0) Ur Specific Blanco (1.001-1.035) Urine Protein (Negative) Urine Glucose (UA) (Negative) Urine Ketones (Negative) Urine Blood (Negative) Urine Nitrite (Negative) Urine Bilirubin (Negative) Urine Urobilinogen (<2.0) mg/dL Ur Leukocyte Esterase (Negative) Urine RBC (0-5) /hpf Urine WBC (0-5) /hpf Ur Squamous Epith Cells (0-4) /hpf Amorphous Sediment (None) /hpf Urine Bacteria (None) /hpf Urine Mucus (None) /hpf - EKG Data EKG Comments: Sinus rhythm with frequent ventricular premature complexes in a bigeminal pattern. Ventricular rate 83 beats per minute, NV interval 151 ms, QRS duration 80 ms, QTC 381 ms. - Radiology Data Radiology results: report reviewed, image reviewed Disposition Clinical Impression: PVC's (premature ventricular contractions), Pneumonia Disposition: HOME SELF-CARE Additional Instructions: Return to the emergency department with any new, worsening, or concerning symptoms. Take the doxycycline as prescribed for 5 days. Use Zofran as needed for nausea and vomiting. Contact your primary care provider next week, and request a sooner appointment for EKG changes and pneumonia. You may need a Holter monitor on an outpatient basis for further evaluation of EKG changes. Prescriptions: Doxycycline [Vibramycin] 100 mg PO BID 5 Days #10 capsule Ondansetron Odt [Zofran Odt] 4 mg PO Q8HR PRN #10 tab PRN Reason: Nausea And Vomiting Is patient prescribed a controlled substance at d/c from ED?: No Referrals: Christiano Christina MD [Primary Care Provider] - 1-2 days
[2021-12-17 16:40] LABS: Basophils % (A) 1 %; Eosinophils # (A) 0.2 k/uL (0-0.7); Eosinophils % (A) 3 %; HCT 41.9 % (34.0-46.0); HGB 13.2 gm/dL (11.4-16.0); Lymphocytes # (A) 1.1 k/uL (1.0-4.8); Lymphocytes % (A) 17 %; MCHC 31.4 g/dL (31.0-37.0); MCV 95.3 fL (80.0-100.0); Mean Platelet Volume 8.3; Monocytes # (A) 0.4 k/uL (0-1.0); Monocytes % (A) 7 %; Neutrophils # (A) 4.7 k/uL (1.3-7.7); Neutrophils % (A) 71 %; Platelet Count 195 k/uL (150-450); RDW 13.2 % (11.5-15.5); WBC 6.5 k/uL (3.8-10.6)
[2021-12-17 16:51] LABS: ALT 15 U/L (4-34); AST 23 U/L (14-36); African American GFR (CKD) >90 (>60 ml/min/1.73 sqM); Alkaline Phosphatase 64 U/L (38-126); Amylase 79 U/L (30-110); Anion Gap 8 mmol/L; Blood Urea Nitrogen 18 mg/dL (7-17); Calcium 8.4 mg/dL (8.4-10.2); Carbon Dioxide 27 mmol/L (22-30); Chloride 102 mmol/L (98-107); Glucose 105 mg/dL (74-99); Lipase 105 U/L (23-300); Non-African American GFR(CKD) 82 (>60 ml/min/1.73 sqM); Potassium 3.8 mmol/L (3.5-5.1); Sodium 137 mmol/L (137-145); Total Bilirubin 0.4 mg/dL (0.2-1.3); Total Protein 6.8 g/dL (6.3-8.2)
--- NOTE | 2021-12-17 18:48 | CT ---
EXAMINATION TYPE: CT abdomen pelvis w con DATE OF EXAM: 12/17/2021 COMPARISON: None HISTORY: RLQ abdominal pain CT DLP: 1306.6 mGycm Automated exposure control for dose reduction was used. CONTRAST: Performed with IV Contrast, patient injected with 100 mL of Isovue 300. Images were obtained from the diaphragm to the floor the pelvis with IV contrast. There is some airspace infiltrate in the right middle lobe. No pleural effusion. Heart size is normal . There is moderate hiatal hernia. The liver is intact. Spleen is intact. There is no pancreatic mass . Gallbladder appears normal. The bile ducts are not dilated. There is no adrenal mass. Kidneys of normal size. No hydronephrosis. Delayed images show normal renal excretion. There is no retroperitoneal adenopathy. Bladder distends smoothly. There is no inguinal h ernia. No free fluid in the pelvis. Uterus is anteverted. No evidence of a pelvic mass. Lumbar verteb yaz have normal alignment. Posterior elements are intact. There is vacuum disc at L5-S1. No compressi on fracture. No the hip joints appear intact. There is degenerative cyst formation in both acetabula . There is no mesenteric edema. No ascites or free air. No sign of a bowel obstruction. Appendix appear s normal. IMPRESSION: There is right middle lobe pneumonic infiltrate. Hiatal hernia. No acute abnormality within the abdomen and pelvis. Normal appendix.
[2021-12-17 18:49] VITALS: BP 107/52; PULSE 65; RESP 16; TEMP 98.8
== END 2021-12-17 19:33 | disposition home or self-care (01) ==
LOC: EC 12:58
DX: I49.3 Ventricular premature depolarization (principal); J18.9 Pneumonia, unspecified organism; R10.31 Right lower quadrant pain; E07.9 Disorder of thyroid, unspecified; Z88.0 Allergy status to penicillin; Z88.5 Allergy status to narcotic agent; Z88.8 Allergy status to other drugs, medicaments and biological substances; Z79.890 Hormone replacement therapy
CPT/HCPCS: 36415; 93005; 80053; 82150; 83690; 83735; 84484; 85025; 81001; 87086; 74177; 99284; 96374; 96361; J2405; Q9967

== ENCOUNTER 2021-12-19 19:51 | Inpatient (IN) | payer MEDICARE, OTHER ==
[2021-12-19] MEDS ORDERED: AZITHROMYCIN 500 MG in SODIUM CHLORIDE 0.9% 250 ML IVPB STA (20:47)
[2021-12-19] MEDS ORDERED: SODIUM CHLORIDE 0.9% 500 ML 500 ML IV STA (20:47)
[2021-12-19] MEDS ORDERED: IPRATROPIUM-ALBUTEROL 3 ML NEB INHALATION STA (20:47)
[2021-12-19] MEDS ORDERED: ACETAMINOPHEN TAB 500 MG TAB PO STA (20:52)
--- NOTE | 2021-12-19 20:57 | ED ---
General Adult HPI - General Chief complaint: Shortness of Breath Stated complaint: Low O2/Fever Time Seen by Provider: 12/19/21 20:31 Source: patient, RN notes reviewed Mode of arrival: wheelchair Limitations: no limitations - History of Present Illness Initial comments: 66-year-old female presents to the emergency department for evaluation of cough, fever, and shortness of breath. Patient states she was diagnosed with pneumonia on Monday and began taking her antibiotic yesterday as directed. States she continues to feel worse and has since developed a fever and shortness of breath. States her home pulse ox read 85%. States she has not taken anything today to treat her fever. Reports congested, nonproductive cough and also continues to have right flank pain. Denies headache, chest pain, nausea, vomiting, dysuria, or hematuria. - Related Data Home Medications Medication Instructions Recorded Confirmed Atorvastatin Calcium [Lipitor] 20 mg PO HS 12/17/21 12/19/21 Levothyroxine Sodium [Synthroid] 100 mcg PO DAILY 12/17/21 12/19/21 Previous Rx's Medication Instructions Recorded Doxycycline [Vibramycin] 100 mg PO BID 5 Days #10 capsule 12/17/21 Allergies Allergy/AdvReac Type Severity Reaction Status Date / Time Penicillins Allergy Anaphylaxis Verified 12/19/21 21:33 promethazine [From Phenergan] Allergy Unknown Verified 12/19/21 21:33 meperidine [From Demerol] AdvReac Hallucinati Verified 12/19/21 21:33 ons Review of Systems ROS Statement: Those systems with pertinent positive or pertinent negative responses have been documented in the HPI. ROS Other: All systems not noted in ROS Statement are negative. Past Medical History Past Medical History: Thyroid Disorder History of Any Multi-Drug Resistant Organisms: None Reported Additional Past Surgical History / Comment(s): c-sect x3. COLONOSCOPY. DEVIATED SEPTUM SX. Left knee arthroscopy with repair of meniscal tear Past Psychological History: No Psychological Hx Reported Smoking Status: Never smoker Past Alcohol Use History: Rare Past Drug Use History: None Reported - Past Family History Father Additional Family Medical History / Comment(s): colon cancer General Exam Limitations: no limitations General appearance: alert, other (This is a well-developed, well-nourished female with mild increased work of breathing. Initial temperature 100.3, repeat 101.8, pulse 95, respirations 22, blood pressure 102/67, pulse ox 88% on room air.) Eye exam: Present: normal appearance. Absent: scleral icterus, conjunctival injection, periorbital swelling, periorbital tenderness ENT exam: Present: normal exam, normal oropharynx, mucous membranes moist Neck exam: Present: normal inspection, full ROM. Absent: tenderness, meningismus Respiratory exam: Present: wheezes (coarse expiratory wheezes throughout all lung cuevas), other (mild tachypnea). Absent: normal lung sounds bilaterally, respiratory distress, rales, rhonchi, stridor, chest wall tenderness Cardiovascular Exam: Present: regular rate, normal rhythm, normal heart sounds. Absent: systolic murmur, diastolic murmur, rubs, gallop, clicks GI/Abdominal exam: Present: soft, normal bowel sounds. Absent: distended, tenderness, guarding, rebound, rigid Extremities exam: Present: other (Bilateral lower extremity dependent, nonpitting edema) Back exam: Present: normal inspection, full ROM, other (right flank pain upon palpation). Absent: paraspinal tenderness, vertebral tenderness, rash noted Neurological exam: Present: alert, oriented X3, CN II-XII intact Psychiatric exam: Present: normal affect, normal mood Skin exam: Present: warm, dry, pallor. Absent: rash Course Vital Signs 12/19/21 12/19/21 12/19/21 20:03 22:20 23:28 Temperature 100.3 F H Pulse Rate 95 85 88 Respiratory 22 20 18 Rate Blood Pressure 102/67 110/65 142/86 O2 Sat by Pulse 88 L 95 96 Oximetry - Reevaluation(s) Reevaluation #1: 12/19/21 22:21 Upon reevaluation, patient's oxygen saturation has improved to 96% on 2 L. She has not yet received her treatment with medications. Lung sounds remain coarse and wheezy throughout. Will reevaluate. Medical Decision Making - Medical Decision Making This is a 66-year-old female with no significant past medical history who presents to the emergency department for evaluation of fever, cough, worsening shortness of breath. Patient states she was diagnosed with pneumonia on Monday and started on antibiotics, however continues to feel worse. Upon exam, patient is mildly tachypneic with a room air saturation of 88%. She is placed on 2 L via nasal cannula with improvement. Lung sounds are coarse and wheezy throughout all cuevas. Laboratory studies were reviewed. Patient is mildly hyponatremic. Her chest x-ray shows pulmonary edema that could relate to acute heart failure or developing RDS. Patient's BNP is 264 therefore this is likely to be respiratory in nature. EKG shows normal sinus rhythm with no ectopy or ST segment changes. Swabs are pending. Patient was given an albuterol inhaler treatment, Tylenol for fever, steroids, IV fluids, and antibiotic therapy was initiated while present in the emergency department for known diagnosis of pneumonia. This patient will be admitted to the hospital for failed outpatient treatment of pneumonia and hypoxia. Attending: John. - Lab Data Result diagrams: 12/19/21 22:10 12/19/21 22:10 Lab Results 12/19/21 12/19/21 12/19/21 Range/Units 22:10 22:10 22:10 WBC 8.0 (3.8-10.6) k/uL RBC 4.06 (3.80-5.40) m/uL Hgb 12.1 (11.4-16.0) gm/dL Hct 38.6 (34.0-46.0) % MCV 95.1 (80.0-100.0) fL MCH 29.8 (25.0-35.0) pg MCHC 31.3 (31.0-37.0) g/dL RDW 13.1 (11.5-15.5) % Plt Count 147 L (150-450) k/uL MPV 9.3 Neutrophils % 90 % Lymphocytes % 6 % Monocytes % 2 % Eosinophils % 0 % Basophils % 1 % Neutrophils # 7.2 (1.3-7.7) k/uL Lymphocytes # 0.5 L (1.0-4.8) k/uL Monocytes # 0.2 (0-1.0) k/uL Eosinophils # 0.0 (0-0.7) k/uL Basophils # 0.1 (0-0.2) k/uL PT 10.6 (9.0-12.0) sec INR 1.0 (<1.2) APTT 19.8 L (22.0-30.0) sec Sodium 133 L (137-145) mmol/L Potassium 4.0 (3.5-5.1) mmol/L Chloride 101 (98-107) mmol/L Carbon Dioxide 21 L (22-30) mmol/L Anion Gap 11 mmol/L BUN 13 (7-17) mg/dL Creatinine 0.72 (0.52-1.04) mg/dL Est GFR (CKD-EPI)AfAm >90 (>60 ml/min/1.73 sqM) Est GFR (CKD-EPI)NonAf 87 (>60 ml/min/1.73 sqM) Glucose 109 H (74-99) mg/dL Plasma Lactic Acid Harlan (0.7-2.0) mmol/L Calcium 7.9 L (8.4-10.2) mg/dL Magnesium 1.9 (1.6-2.3) mg/dL Total Bilirubin 0.8 (0.2-1.3) mg/dL AST 57 H (14-36) U/L ALT 51 H (4-34) U/L Alkaline Phosphatase 72 (38-126) U/L Troponin I (0.000-0.034) ng/mL NT-Pro-B Natriuret Pep pg/mL Total Protein 6.8 (6.3-8.2) g/dL Albumin 3.8 (3.5-5.0) g/dL 12/19/21 12/19/21 12/19/21 Range/Units 22:10 22:10 22:10 WBC (3.8-10.6) k/uL RBC (3.80-5.40) m/uL Hgb (11.4-16.0) gm/dL Hct (34.0-46.0) % MCV (80.0-100.0) fL MCH (25.0-35.0) pg MCHC (31.0-37.0) g/dL RDW (11.5-15.5) % Plt Count (150-450) k/uL MPV Neutrophils % % Lymphocytes % % Monocytes % % Eosinophils % % Basophils % % Neutrophils # (1.3-7.7) k/uL Lymphocytes # (1.0-4.8) k/uL Monocytes # (0-1.0) k/uL Eosinophils # (0-0.7) k/uL Basophils # (0-0.2) k/uL PT (9.0-12.0) sec INR (<1.2) APTT (22.0-30.0) sec Sodium (137-145) mmol/L Potassium (3.5-5.1) mmol/L Chloride (98-107) mmol/L Carbon Dioxide (22-30) mmol/L Anion Gap mmol/L BUN (7-17) mg/dL Creatinine (0.52-1.04) mg/dL Est GFR (CKD-EPI)AfAm (>60 ml/min/1.73 sqM) Est GFR (CKD-EPI)NonAf (>60 ml/min/1.73 sqM) Glucose (74-99) mg/dL Plasma Lactic Acid Harlan 1.5 (0.7-2.0) mmol/L Calcium (8.4-10.2) mg/dL Magnesium (1.6-2.3) mg/dL Total Bilirubin (0.2-1.3) mg/dL AST (14-36) U/L ALT (4-34) U/L Alkaline Phosphatase (38-126) U/L Troponin I 0.027 (0.000-0.034) ng/mL NT-Pro-B Natriuret Pep 264 pg/mL Total Protein (6.3-8.2) g/dL Albumin (3.5-5.0) g/dL - EKG Data EKG shows normal: sinus rhythm Rate: normal EKG Comments: EKG was obtained at 2240 showing sinus rhythm. Ventricular rate 84, CA interval 154, QRS duration 85, QT/QTC 359/399. Interpretation normal ECG. - Radiology Data Radiology results: report reviewed, image reviewed Two-view chest x-ray was obtained. Report was reviewed in its entirety. Impression per Dr. Pierce is pulmonary edema that could relate to acute heart failure or developing RDS. Disposition Clinical Impression: Pneumonia, Hypoxia, Fever, Failure of outpatient treatment Disposition: ADMITTED IP TO THIS [facility] Condition: Serious Referrals: Christiano Christina MD [Primary Care Provider] - 1-2 days Decision Date: 12/19/21 Decision Time: 23:25
[2021-12-19] MEDS ORDERED: ALBUTEROL HFA INHALER INHALATION STA (22:06)
[2021-12-19 22:28] LABS: Basophils # (A) 0.1 k/uL (0-0.2); Basophils % (A) 1 %; Eosinophils % (A) 0 %; HCT 38.6 % (34.0-46.0); HGB 12.1 gm/dL (11.4-16.0); Lymphocytes # (A) 0.5 k/uL (1.0-4.8); Lymphocytes % (A) 6 %; MCH 29.8 pg (25.0-35.0); MCHC 31.3 g/dL (31.0-37.0); MCV 95.1 fL (80.0-100.0); Mean Platelet Volume 9.3; Monocytes # (A) 0.2 k/uL (0-1.0); Monocytes % (A) 2 %; Neutrophils # (A) 7.2 k/uL (1.3-7.7); Neutrophils % (A) 90 %; Platelet Count 147 k/uL (150-450); RBC 4.06 m/uL (3.80-5.40); RDW 13.1 % (11.5-15.5)
--- NOTE | 2021-12-19 22:39 | XR ---
EXAMINATION TYPE: XR chest 2V DATE OF EXAM: 12/19/2021 COMPARISON: NONE HISTORY: Short of breath TECHNIQUE: FINDINGS: There is some pulmonary interstitial and airspace edema. Heart size is normal. No pleural e ffusion. IMPRESSION: Pulmonary edema that could relate to acute heart failure or developing RDS.
[2021-12-19 22:48] LABS: Prothrombin Time 10.6 sec (9.0-12.0)
[2021-12-19 22:49] LABS: Partial Thromboplastin Time 19.8 sec (22.0-30.0)
[2021-12-19 22:50] LABS: ALT 51 U/L (4-34); AST 57 U/L (14-36); African American GFR (CKD) >90 (>60 ml/min/1.73 sqM); Albumin 3.8 g/dL (3.5-5.0); Alkaline Phosphatase 72 U/L (38-126); Anion Gap 11 mmol/L; Blood Urea Nitrogen 13 mg/dL (7-17); Calcium 7.9 mg/dL (8.4-10.2); Carbon Dioxide 21 mmol/L (22-30); Chloride 101 mmol/L (98-107); Glucose 109 mg/dL (74-99); Magnesium 1.9 mg/dL (1.6-2.3); Non-African American GFR(CKD) 87 (>60 ml/min/1.73 sqM); Sodium 133 mmol/L (137-145); Total Bilirubin 0.8 mg/dL (0.2-1.3); Total Protein 6.8 g/dL (6.3-8.2)
[2021-12-19] MEDS ORDERED: methylPREDNISolone SOD SUCCI 125 MG/2 ML VIAL IV STA (23:06)
[2021-12-19] MEDS ORDERED: HYDROmorphone 0.5 MG/0.5 ML SYRINGE IVP PRN (23:25)
[2021-12-19] MEDS ORDERED: ONDANSETRON 4 MG/2 ML VIAL IVP PRN (23:25)
[2021-12-19] MEDS ORDERED: ACETAMINOPHEN TAB 325 MG TAB PO PRN (23:25)
[2021-12-19] MEDS ORDERED: NALOXONE 0.4 MG/ML 1 ML VIAL IV PRN (23:25)
[2021-12-19] MEDS ORDERED: ALBUTEROL NEBULIZED 2.5 MG/3 ML INHALATION PRN (23:28)
[2021-12-19] MEDS: SODIUM CHLORIDE 0.9% 1,000 ML IV SCH (23:38)
--- NOTE | 2021-12-20 03:13 | P.HPIM ---
History of Present Illness H&P Date: 12/20/21 Chief Complaint: SOB 66 year old female with no significant past medical history patient was diagnosed with pneumonia 4-5 days ago , however, she did not start antibiotics until yesterday MondayDecember 18. she comes in today due to fatigue and worsening cough and SOB. denies any fever, and report some chills. denies nausea or vomiting, denies chest pain , denies any recent travel . or history of blood clots. today she reports increase fatigue and shortness of breath , denies any hemoptysis inthe ED she was found to be hypoxic on room air and admitted for further care CXR showed picture of ARDS Review of Systems Pertinent positives as noted in HPI. All other systems were reviewed and are negative Past Medical History Past Medical History: Thyroid Disorder History of Any Multi-Drug Resistant Organisms: None Reported Additional Past Surgical History / Comment(s): c-sect x3. COLONOSCOPY. DEVIATED SEPTUM SX. Left knee arthroscopy with repair of meniscal tear Past Psychological History: No Psychological Hx Reported Smoking Status: Never smoker Past Alcohol Use History: Rare Past Drug Use History: None Reported - Past Family History Father Additional Family Medical History / Comment(s): colon cancer Medications and Allergies Home Medications Medication Instructions Recorded Confirmed Type Atorvastatin Calcium [Lipitor] 20 mg PO HS 12/17/21 12/19/21 History Doxycycline [Vibramycin] 100 mg PO BID 5 Days #10 capsule 12/17/21 12/19/21 Rx Levothyroxine Sodium [Synthroid] 100 mcg PO DAILY 12/17/21 12/19/21 History Allergies Allergy/AdvReac Type Severity Reaction Status Date / Time Penicillins Allergy Anaphylaxis Verified 12/19/21 21:33 promethazine [From Phenergan] Allergy Unknown Verified 12/19/21 21:33 meperidine [From Demerol] AdvReac Hallucinati Verified 12/19/21 21:33 ons Physical Exam Vitals: Vital Signs Temp Pulse Resp BP Pulse Ox 12/20/21 00:51 81 18 141/76 96 12/20/21 00:00 99.3 F 12/19/21 23:28 88 18 142/86 96 12/19/21 22:20 85 20 110/65 95 12/19/21 20:03 100.3 F H 95 22 102/67 88 L Intake and Output 12/19/21 12/19/21 12/20/21 14:59 22:59 06:59 Other: Weight 87.997 kg Constitutional: No acute distress, conversant, pleasant Eyes: Anicteric sclerae, moist conjunctiva, Pupils equal round reactive to light ENMT: NC/AT Oropharynx clear, no erythema, or exudates Neck: Supple, FROM, no masses, or JVD No carotid bruits No thyromegaly Lungs: diffuse rhonchi Clear to percussion Normal respiratory effort, no accessory muscle use Cardiovascular: Heart regular in rate and rhythm, No murmurs, gallops, or rubs No peripheral edema Abdominal: Soft Nontender, no guarding, rebound or rigidity Abdomen moving with respiration Normoactive bowel sounds No hepatomegaly, No splenomegaly No palpable mass No abdominal wall hernia noted Skin: Normal temperature, tone, texture, turgor No induration No subcutaneous nodules No rash, lesions No ulcers Extremities: No digital cyanosis No clubbing Pedal pulses intact and symmetrical Radial pulses intact and symmetrical No calf tenderness Psychiatric: Alert and oriented to person, place and time Appropriate affect fair judgement Neuro Muscles Strength 5/5 in all 4 extremities Sensation to light touch grossly present throughout Cranial nerves II-XII grossly intact No focal sensory deficits Lymphatics: no palpable cervical or supraclavicular , or inguinal lymph nodes Results CBC & Chem 7: 12/19/21 22:10 12/19/21 22:10 Labs: Abnormal Lab Results - Last 24 Hours (Table) 12/19/21 12/19/21 12/19/21 Range/Units 22:10 22:10 22:10 Plt Count 147 L (150-450) k/uL Lymphocytes # 0.5 L (1.0-4.8) k/uL APTT 19.8 L (22.0-30.0) sec Sodium 133 L (137-145) mmol/L Carbon Dioxide 21 L (22-30) mmol/L Glucose 109 H (74-99) mg/dL Calcium 7.9 L (8.4-10.2) mg/dL AST 57 H (14-36) U/L ALT 51 H (4-34) U/L Assessment and Plan Assessment: acute hypoxic respiratory failure community acquired pneumonia follow up cultures check legionella levaquin daily tylenol for fever supplemental oxygen as needed supportive care IVF hydration assess home oxygen requirement before discharge full code hepairn sc tid for dvt ppx anticipated length of stay > 2 midnights
[2021-12-20] MEDS: LEVOFLOXACIN 750MG-D5W PMX 750 MG in DEXTROSE/WATER 1 150ML.BAG IVPB SCH (03:31)
[2021-12-20 05:18] LABS: Appearance,Urine Clear (Clear); Bacteria,Urine Rare /hpf; Bilirubin,Urine Negative (Negative); Blood,Urine Trace (Negative); Color,Urine Light Yellow; Glucose,Urine (UA) Negative (Negative); Ketones,Urine 1+ (Negative); Leukocyte Esterase,Urine Negative (Negative); Nitrite,Urine Negative (Negative); Protein,Urine Trace (Negative); RBC,Urine 1 /hpf (0-5); Specific Gravity,Urine 1.005 (1.001-1.035); Squamous Epithelial Cell,Urine <1 /hpf (0-4); Urobilinogen,Urine <2.0 mg/dL (<2.0); WBC,Urine 2 /hpf (0-5)
[2021-12-20] MEDS: LEVOTHYROXINE 100 MCG TAB PO SCH (06:40)
[2021-12-20 08:04] LABS: Basophils % (A) 0 %; Eosinophils % (A) 0 %; HCT 41.8 % (34.0-46.0); Lymphocytes # (A) 0.6 k/uL (1.0-4.8); Lymphocytes % (A) 10 %; MCH 30.2 pg (25.0-35.0); MCHC 31.2 g/dL (31.0-37.0); MCV 96.9 fL (80.0-100.0); Mean Platelet Volume 8.9; Monocytes # (A) 0.1 k/uL (0-1.0); Monocytes % (A) 2 %; Neutrophils # (A) 5.2 k/uL (1.3-7.7); Neutrophils % (A) 87 %; Platelet Count 139 k/uL (150-450); RBC 4.31 m/uL (3.80-5.40); RDW 13.2 % (11.5-15.5); WBC 5.9 k/uL (3.8-10.6)
[2021-12-20 08:19] LABS: African American GFR (CKD) >90 (>60 ml/min/1.73 sqM); Anion Gap 12 mmol/L; Blood Urea Nitrogen 12 mg/dL (7-17); Calcium 7.9 mg/dL (8.4-10.2); Carbon Dioxide 19 mmol/L (22-30); Chloride 108 mmol/L (98-107); Glucose 168 mg/dL (74-99); Non-African American GFR(CKD) >90 (>60 ml/min/1.73 sqM); Potassium 3.9 mmol/L (3.5-5.1); Sodium 139 mmol/L (137-145)
[2021-12-20] MEDS: HEPARIN SODIUM,PORCINE/PF 5,000 UNIT/0.5 ML SYRINGE SQ SCH ×3 (11:54→23:32)
[2021-12-20] MEDS: FAMOTIDINE 20 MG TAB PO SCH ×2 (11:58→20:25)
[2021-12-20] MEDS ORDERED: IPRATROPIUM-ALBUTEROL 3 ML NEB INHALATION PRN (12:34)
[2021-12-20] MEDS ORDERED: AZITHROMYCIN 500 MG in SODIUM CHLORIDE 0.9% 250 ML IVPB SCH (14:00)
[2021-12-20] MEDS: SODIUM CHLORIDE 0.9% 1,000 ML IV SCH (18:42)
[2021-12-20] MEDS: ATORVASTATIN 20 MG TAB PO SCH (20:25)
[2021-12-21] MEDS: LEVOFLOXACIN 750MG-D5W PMX 750 MG in DEXTROSE/WATER 1 150ML.BAG IVPB SCH (03:43)
[2021-12-21] MEDS: LEVOTHYROXINE 100 MCG TAB PO SCH (05:59)
[2021-12-21] MEDS: FAMOTIDINE 20 MG TAB PO SCH ×2 (08:43→20:18)
[2021-12-21] MEDS: HEPARIN SODIUM,PORCINE/PF 5,000 UNIT/0.5 ML SYRINGE SQ SCH ×3 (08:43→20:18)
--- NOTE | 2021-12-21 11:55 | P.CRDCN ---
History of Present Illness History of present illness: This is a 66 year old female with a past medical history of hyperlipidemia and hypothyroidism. She does not follow with a wellness consultant. We have been asked to see in consultation for "troponin". Patient presents emergency department with worsening cough, fever, shortness of breath. She was recently diagnosed with pneumonia on Monday, was treated with outpatient antibiotics. Her symptoms have progressively gotten worse and came to the ER for further evaluation. She was found to have temp 100.3. oxygen saturations were 88% on room air. She denies any chest pain, lightheadedness, dizziness, syncope or near syncope. No history of CAD, [place], Stroke or diabetes or hypertension. Her troponin was 0.02. DIAGNOSTICS EKG reveals sinus rhythm HR 84, no acute ST-T wave abnormalities. Chest xray ARDS Laboratory reviewed, troponin 0.02, sodium 139, potassium 3.9, BUN 12, serum creatinine 0.05, COVID-19 negative, influenza A and B negative, Urine legionella negative Current home medications include Synthroid and atorvastatin 20 mg nightly, doxycycline REVIEW OF SYSTEMS At the time of my exam: CONSTITUTIONAL: Denies fever or chills. CARDIOVASCULAR: Denies chest pain, shortness of breath, orthopnea, PND or palpitations. RESPIRATORY: Denies cough. GASTROINTESTINAL: Denies abdominal pain, diarrhea, constipation, nausea or vomiting. MUSCULOSKELETAL: Denies myalgias. NEUROLOGIC: Denies numbness, tingling, headacbe or weakness. ENDOCRINE: Denies fatigue, weight change, polydipsia or polyurina. GENITOURINARY: Denies burning, hematuria or urgency with micturation. HEMATOLOGIC: Denies history of anemia or bleeding. PHYSICAL EXAMINATION Blood pressure 118/64, heart rate 60, afebrile, saturations 95% on room air CONSTITUTIONAL: No apparent distress. HEENT: Head is normocephalic. Pupils are equal, round. Sclerae anicteric. Mucous membranes of the mouth are moist. No JVD. No carotid bruit. CHEST EXAMINATION: Lungs are clear to auscultation. No chest wall tenderness is noted on palpation or with deep breathing. HEART EXAMINATION: Regular rate and rhythm. S1, S2 heard. No murmurs, gallops or rub. ABDOMEN: Soft, nontender. Positive bowel sounds. EXTREMITIES: 2+ peripheral pulses, no lower extremity edema and no calf tenderness. NEUROLOGIC EXAMINATION: Patient is awake, alert and oriented x3. ASSESSMENT Pneumonia Acute hypoxic respiratory failure Fever History of hypothyroidism Dyslipidemia PLAN Questionable troponin abnormality, Troponin is within normal limits. 2D echocardiogram will be obtained. Discharge per primary. Nurse practitioner note has been reviewed by physician. Signing provider agrees with the documented findings, assessment, and plan of care. Past Medical History Past Medical History: Thyroid Disorder History of Any Multi-Drug Resistant Organisms: None Reported Additional Past Surgical History / Comment(s): c-sect x3. COLONOSCOPY. DEVIATED SEPTUM SX. Left knee arthroscopy with repair of meniscal tear Past Psychological History: No Psychological Hx Reported Smoking Status: Never smoker Past Alcohol Use History: Rare Past Drug Use History: None Reported - Past Family History Father Additional Family Medical History / Comment(s): colon cancer Medications and Allergies Home Medications Medication Instructions Recorded Confirmed Type Atorvastatin Calcium [Lipitor] 20 mg PO HS 12/17/21 12/19/21 History Levothyroxine Sodium [Synthroid] 100 mcg PO DAILY 12/17/21 12/19/21 History Albuterol Inhaler [Ventolin Hfa 1 puff INHALATION RT-TID PRN #8 gm 12/22/21 Rx Inhaler] Levofloxacin [Levaquin] 750 mg PO DAILY 5 Days #5 tab 12/22/21 Rx Allergies Allergy/AdvReac Type Severity Reaction Status Date / Time Penicillins Allergy Anaphylaxis Verified 12/19/21 21:33 promethazine [From Phenergan] Allergy Unknown Verified 12/19/21 21:33 meperidine [From Demerol] AdvReac Hallucinati Verified 12/19/21 21:33 ons Physical Exam Vitals: Vital Signs Temp Pulse Resp BP Pulse Ox 12/21/21 07:19 95 12/21/21 04:00 97.6 F 60 18 118/64 93 L 12/21/21 02:00 53 L 18 12/20/21 23:31 97.7 F 53 L 18 128/76 93 L 12/20/21 20:00 98 F 65 18 107/68 95 12/20/21 17:06 58 L 18 109/64 94 L 12/20/21 14:00 58 L 18 12/20/21 12:05 97.9 F 67 19 123/67 95 12/20/21 08:21 97.7 F Intake and Output 12/20/21 12/21/21 12/21/21 22:59 06:59 14:59 Intake Total 200 Balance 200 Intake: Oral 200 Other: Voiding Method Toilet Toilet # Voids 2 1 Weight 87.997 kg Results 12/20/21 07:22 12/20/21 07:22 Comprehensive Metabolic Panel 12/20/21 Range/Units 07:22 Sodium 139 (137-145) mmol/L Potassium 3.9 (3.5-5.1) mmol/L Chloride 108 H (98-107) mmol/L Carbon Dioxide 19 L (22-30) mmol/L BUN 12 (7-17) mg/dL Creatinine 0.50 L (0.52-1.04) mg/dL Glucose 168 H (74-99) mg/dL Calcium 7.9 L (8.4-10.2) mg/dL Current Medications Generic Name Dose Route Start Last Admin Trade Name Freq PRN Reason Stop Dose Admin Acetaminophen 650 mg 12/19/21 23:25 12/20/21 20:25 Acetaminophen Tab 325 Mg Tab PO 650 mg Q6HR PRN Administration Mild Pain or Fever > 100.5 Albuterol Sulfate 2.5 mg 12/19/21 23:28 Albuterol Nebulized 2.5 Mg/3 Ml INHALATION RT-QID PRN Shortness Of Breath Albuterol/Ipratropium 3 ml 12/20/21 12:34 Ipratropium-Albuterol 3 Ml Neb INHALATION RT-TID PRN Shortness Of Breath Or Wheezing Atorvastatin Calcium 20 mg 12/20/21 21:00 12/20/21 20:25 Atorvastatin 20 Mg Tab PO 20 mg HS JANINA Administration Famotidine 20 mg 12/20/21 09:00 12/20/21 20:25 Famotidine 20 Mg Tab PO 20 mg BID JANINA Administration Heparin Sodium (Porcine) 5,000 unit 12/20/21 08:00 12/20/21 23:32 Heparin Sodium,Porcine/Pf 5,000 Unit/0.5 Ml Syringe SQ 5,000 unit Q8HR JANINA Administration Hydromorphone HCl 0.5 mg 12/19/21 23:25 Hydromorphone 0.5 Mg/0.5 Ml Syringe IVP Q3HR PRN Moderate Pain Levofloxacin 750 mg/ IV 150 mls @ 100 mls/hr 12/20/21 03:30 12/21/21 03:43 Solution IVPB 100 mls/hr Q24H JANINA Administration Protocol Levothyroxine Sodium 100 mcg 12/20/21 06:30 12/21/21 05:59 Levothyroxine 100 Mcg Tab PO 100 mcg DAILY@0630 JANINA Administration Naloxone HCl 0.2 mg 12/19/21 23:25 Naloxone 0.4 Mg/Ml 1 Ml Vial IV Q2M PRN Opioid Reversal Ondansetron HCl 4 mg 12/19/21 23:25 12/20/21 03:35 Ondansetron 4 Mg/2 Ml Vial IVP 4 mg Q8HR PRN Administration Nausea And Vomiting Intake and Output 12/20/21 12/21/21 12/21/21 22:59 06:59 14:59 Intake Total 200 Balance 200 Intake: Oral 200 Other: Voiding Method Toilet Toilet # Voids 2 1 Weight 87.997 kg 12/20/21 07:22 12/20/21 07:22
--- NOTE | 2021-12-21 15:16 | P.PN ---
Subjective Patient was examined at bedside today not complaining of any new symptomatology. She states that the cough is better she is currently on room air saturating above 92%. Objective - Vital Signs Vital signs: Vital Signs Temp 97.8 F 12/21/21 11:45 Pulse 69 12/21/21 11:45 Resp 16 12/21/21 11:45 BP 116/76 12/21/21 11:45 Pulse Ox 97 12/21/21 11:45 FiO2 Intake & Output 12/20/21 12/21/21 12/21/21 18:59 06:59 18:59 Intake Total 200 240 Balance 200 240 Weight 87.997 kg Intake: Oral 200 240 Other: Voiding Method Toilet Toilet # Voids 2 1 - Exam Gen. patient is awake alert oriented 3 Cardiac normal S1/S2 Respiratory some rhonchi appreciated Abdomen soft, nontender Extremity no pitting edema Neurologic patient is awake alert oriented 3 no focal deficits - Labs CBC & Chem 7: 12/20/21 07:22 12/20/21 07:22 Labs: Microbiology - Last 24 Hours (Table) 12/19/21 21:52 Blood Culture - Preliminary Blood No Growth after 24 hours 12/19/21 21:00 Blood Culture - Preliminary Blood No Growth after 24 hours Assessment and Plan Assessment: Assessment: #1 acute hypoxic respiratory distress #2 COVID-19 for pneumonia #3 hyperlipidemia #4 hypothyroidism Plan: -Admit to medicine for close monitoring -Aspiration/fall precaution -Maintain saturations above 92% -Chest x-ray reviewed -Continue with levofloxacin can be switched over to oral to complete 5 more days and will be sent overnight albuterol when necessary -DVT prophylaxis heparin -Cardio to consulted from the ER pending 2-D echocardiogram.
[2021-12-21 16:49] VITALS: BP 125/85; TEMP 97.4
[2021-12-21] MEDS: ATORVASTATIN 20 MG TAB PO SCH (20:18)
[2021-12-22] MEDS: LEVOFLOXACIN 750MG-D5W PMX 750 MG in DEXTROSE/WATER 1 150ML.BAG IVPB SCH (03:53)
[2021-12-22 04:52] VITALS: PULSE 67; RESP 18
[2021-12-22] MEDS: LEVOTHYROXINE 100 MCG TAB PO SCH (06:28)
[2021-12-22] MEDS ORDERED: LEVOFLOXACIN 750 MG TAB PO SCH (09:00)
[2021-12-22] MEDS: HEPARIN SODIUM,PORCINE/PF 5,000 UNIT/0.5 ML SYRINGE SQ SCH (10:05)
[2021-12-22] MEDS: FAMOTIDINE 20 MG TAB PO SCH (10:05)
--- NOTE | 2021-12-22 11:36 | P.DS ---
Providers Date of admission: 12/19/21 23:51 Attending physician: Cecilia Ritter MD Consults: 12/20/21 09:39 Consult Physician Routine Consulting Provider: Adal Pierre Consult Reason/Comments: troponin Do you want consulting provider notified?: Yes Primary care physician: Christiano Christina MD Hospital Course: 66 year old female with no significant past medical history patient was diagnosed with pneumonia 4-5 days ago , however, she did not start antibiotics until yesterday MondayDecember 18. she comes in today due to fatigue and worsening cough and SOB. denies any fever, and report some chills. denies nausea or vomiting, denies chest pain , denies any recent travel . or history of blood clots. today she reports increase fatigue and shortness of breath , denies any hemoptysis inthe ED she was found to be hypoxic on room air and admitted for further care Patient was medically started on IV antibiotics including IV Rocephin and azithromycin unfortunately due to the ALLERGY was switched over to Levaquin. Patient's hospital course was uneventful she continued to be on room air without any significant sputum or fever or chills. 2-D echocardiogram was ordered by cardiology team and received a call today stating that everything is okay from their perspective. At this time the patient will be asked to follow up with outpatient PCP and cardiology. We will be discharging the patient home on Levaquin 500 milligrams daily for 5 days and albuterol when necessary for shortness of breath. Patient Condition at Discharge: Serious Plan - Discharge Summary Discharge Rx Participant: No New Discharge Prescriptions: New Levofloxacin [Levaquin] 750 mg PO DAILY 5 Days #5 tab Albuterol Inhaler [Ventolin Hfa Inhaler] 1 puff INHALATION RT-TID PRN #8 gm PRN Reason: Shortness Of Breath Continue Levothyroxine Sodium [Synthroid] 100 mcg PO DAILY Atorvastatin Calcium [Lipitor] 20 mg PO HS Discontinued Doxycycline [Vibramycin] 100 mg PO BID 5 Days #10 capsule Discharge Medication List Atorvastatin Calcium [Lipitor] 20 mg PO HS 12/17/21 [History] Levothyroxine Sodium [Synthroid] 100 mcg PO DAILY 12/17/21 [History] Albuterol Inhaler [Ventolin Hfa Inhaler] 1 puff INHALATION RT-TID PRN #8 gm 12/22/21 [Rx] Levofloxacin [Levaquin] 750 mg PO DAILY 5 Days #5 tab 12/22/21 [Rx] Follow up Appointment(s)/Referral(s): Christiano Christina MD [Primary Care Provider] - 1-2 days Patient Instructions/Handouts: A-fib (Atrial Fibrillation) (DC)
--- NOTE | 2021-12-22 11:59 | CA ---
Transthoracic Echo Report Name: Zainab Liao Age: 66 Gender: F : 1955 Exam Date: 12/21/2021 13:24 Exam Location: [facility] Ht (in): 61 Wt (lb): 194 Ordering Physician: Magdalena Osborne Attending/Referring Phys: Personal Computer Specialist Abi Marie RDCS Procedure CPT: Indications: LV function Cardiac Hx: Technical Quality: Fair Contrast 1: Total Dose (mL): Contrast 2: Total Dose (mL): MEASUREMENTS (Male / Female) Normal Values 2D ECHO LV Diastolic Diameter PLAX 3.7 cm 4.2 - 5.9 / 3.9 - 5.3 cm LV Systolic Diameter PLAX 2.7 cm IVS Diastolic Thickness 0.9 cm 0.6 - 1.0 / 0.6 - 0.9 cm LVPW Diastolic Thickness 1.2 cm 0.6 - 1.0 / 0.6 - 0.9 cm LV Relative Wall Thickness 0.6 RV Internal Dim ED PLAX 3.3 cm LA Volume 58.9 cm??? 18 - 58 / 22 - 52 cm??? M-MODE Aortic Root Diameter MM 2.9 cm LA Systolic Diameter MM 3.9 cm LA Ao Ratio MM 1.3 AV Cusp Separation MM 1.6 cm DOPPLER AV Peak Velocity 145.3 cm/s AV Peak Gradient 8.4 mmHg AI Peak Velocity 412.6 cm/s AI Peak Gradient 68.1 mmHg AI Pressure Half Time 512.6 ms LVOT Peak Velocity 150.0 cm/s LVOT Peak Gradient 9.0 mmHg MV Area PHT 3.9 cm??? Mitral E Point Velocity 98.1 cm/s Mitral A Point Velocity 110.2 cm/s Mitral E to A Ratio 0.9 MV Deceleration Time 194.4 ms MV E' Velocity 8.4 cm/s Mitral E to MV E' Ratio 11.6 TR Peak Velocity 272.0 cm/s TR Peak Gradient 29.6 mmHg Right Ventricular Systolic Press 33.2 mmHg FINDINGS Left Ventricle Mildly increased left ventricular wall thickness. Normal left ventricular systolic function with no obvious regional wall motion abnormalities. Normal left ventricular diastolic filling pattern. Left ventricular ejection fraction is estimated at 55-60 %. Right Ventricle Normal right ventricular size and function. Right ventricular systolic pressure within normal limits. Right Atrium Normal right atrial size. Left Atrium Mildly increased left atrial volume. Mildly increased left atrial area. No evidence for an atrial septal defect. Mitral Valve Structurally normal mitral valve. Mild mitral regurgitation. Aortic Valve No aortic stenosis. Mild aortic regurgitation. Tricuspid Valve Mild tricuspid regurgitation. Pulmonic Valve Structurally normal pulmonic valve. Trace pulmonic regurgitation. Pericardium No pericardial effusion. Aorta Normal size aortic root and proximal ascending aorta. CONCLUSIONS Mild LVH Normal left ventricular ejection fraction 55-60% Mild left atrial dilation Mild mitral regurgitation Mild tricuspid regurgitation No pericardial effusion Previewed by: Dr. Adal Pierre DO (Electronically Signed) Final Date: 22 December 2021 11:58
--- NOTE | 2021-12-22 12:10 | P.PN ---
Subjective This is a 66 year old female with a past medical history of hyperlipidemia and hypothyroidism. She does not follow with a filling station attendant. We have been asked to see in consultation for "troponin". Patient presents emergency department with worsening cough, fever, shortness of breath. She was recently diagnosed with pneumonia on Monday, was treated with outpatient antibiotics. Her symptoms have progressively gotten worse and came to the ER for further evaluation. She was found to have temp 100.3. oxygen saturations were 88% on room air. She denies any chest pain, lightheadedness, dizziness, syncope or near syncope. No history of CAD, [place], Stroke or diabetes or hypertension. Her troponin was 0.02. 12/22/2021 Patient seen and examined at bedside, no acute distress. She is upset that she was not discharged yesterday. Vital signs are stable. She denies any chest pain or shortness of breath. Echocardiogram EF 5560%, mild LVH, mild atrial dilation, mild mitral regurgitation, mild tricuspid regurgitation. PHYSICAL EXAMINATION Vitals reviewed CONSTITUTIONAL: No apparent distress. HEENT: Neck Supple. No JVD. CHEST EXAMINATION: Lungs are clear to auscultation. No chest wall tenderness is noted on palpation or with deep breathing. HEART EXAMINATION: Regular rate and rhythm. S1, S2 heard. No murmurs, gallops or rub. ABDOMEN: Soft, nontender. Positive bowel sounds. EXTREMITIES: 2+ peripheral pulses, no lower extremity edema and no calf tenderness. NEUROLOGIC EXAMINATION: Patient is awake, alert and oriented x3. ASSESSMENT Pneumonia Acute hypoxic respiratory failure Fever History of hypothyroidism Dyslipidemia PLAN Questionable troponin abnormality, Troponin is within normal limits. 2D echocardiogram revealed EF 55-60% with no significant wall motion abnormalities. Patient is stable from a cardiology perspective. We will follow the patient as needed. Please reconsult if needed. Discharge per primary. Nurse practitioner note has been reviewed by physician. Signing provider agrees with the documented findings, assessment, and plan of care. Objective - Vital Signs Vital signs: Vital Signs Temp 97.4 F L 12/21/21 16:00 Pulse 67 12/22/21 04:00 Resp 18 12/22/21 04:00 BP 125/85 12/21/21 16:00 Pulse Ox 95 12/21/21 16:00 FiO2 Intake & Output 12/21/21 12/22/21 12/22/21 18:59 06:59 18:59 Intake Total 480 Balance 480 Intake: Intake, IV Titration 0 Amount Levofloxacin 750Mg-D5w 0 Pmx 750 mg In Dextrose/ Water 1 150ml.bag @ 100 mls/hr IVPB Q24H [facility] Rx#: [id number] Oral 480 Other: Voiding Method Toilet # Voids 1 - Labs CBC & Chem 7: 12/20/21 07:22 12/20/21 07:22 Labs: Microbiology - Last 24 Hours (Table) 12/19/21 21:52 Blood Culture - Preliminary Blood No Growth after 48 hours 12/19/21 21:00 Blood Culture - Preliminary Blood No Growth after 48 hours
== END 2021-12-22 13:25 | disposition home or self-care (01) | DRG 193 ==
LOC: EC 19:51 → 3SCARD 23:51
PROVIDERS: ADMIT Internal Medicine; ATTEND Internal Medicine
DX: J18.9 Pneumonia, unspecified organism (principal); J80 Acute respiratory distress syndrome; E87.1 Hypo-osmolality and hyponatremia; E03.9 Hypothyroidism, unspecified; E78.5 Hyperlipidemia, unspecified; I50.9 Heart failure, unspecified; Z79.890 Hormone replacement therapy; Z79.899 Other long term (current) drug therapy; Z20.822 Contact with and (suspected) exposure to COVID-19; Z80.0 Family history of malignant neoplasm of digestive organs; Z88.5 Allergy status to narcotic agent; Z88.0 Allergy status to penicillin; Z88.8 Allergy status to other drugs, medicaments and biological substances; Z28.21 Immunization not carried out because of patient refusal
CPT/HCPCS: 36415; 71046; 74177; 80048; 80053; 81001; 82150; 83605; 83690; 83735; 83880; 84484; 85025; 85610; 85730; 87040; 87086; 87449; 87502; 87635; 93005; 93306; 94640

== ENCOUNTER → 2022-02-25 | Outpatient (CLI) | payer MEDICARE, OTHER ==
--- NOTE | 2022-02-28 10:08 | MM ---
Reason for Exam: Screening (asymptomatic). Last screening mammogram was performed 12 month(s) ago. Patient History: Menarche at age 9. First Full-Term at age 25. Postmenopausal. Risk Values: Dalia 5 year model risk: 2.1%. NCI Lifetime model risk: 6.7%. Prior Study Comparison: 10/14/2016 Screening Mammogram, [place]. 05/03/2019 Bilateral Screening Mammogram, [facility]. 02/24/2021 Bilateral Screening Mammogram, [facility]. Tissue Density: There are scattered fibroglandular densities. Findings: Analyzed By CAD. No significant interval change is evident. Benign vascular calcifications and a few scattered benign-appearing calcifications present. No suspicious groups of microcalcifications, spiculated or lobular masses, architectural distortion or other secondary signs of malignancy are mammographically apparent. Overall Assessment: Benign, BI-RAD 2 Management: Screening Mammogram of both breasts in 1 year. A negative mammogram report should not preclude additional follow up of suspicious palpable abnormalities. Patient should continue monthly self breast exam. A clinical breast exam by your physician is recommended on an annual basis and results should be correlated with mammographic findings. Electronically signed and approved by: Raul Esparza D.O. Radiologis
== END | disposition home or self-care (01) ==
LOC: RADMAMWWP 09:27
PROVIDERS: ATTEND Internal Medicine
DX: Z12.31 Encounter for screening mammogram for malignant neoplasm of breast (principal); Z78.0 Asymptomatic menopausal state
CPT/HCPCS: 77063; 77067

== ENCOUNTER → 2023-03-09 | Outpatient (CLI) | payer MEDICARE, OTHER ==
--- NOTE | 2023-03-10 08:26 | MM ---
Reason for Exam: Screening (asymptomatic). Last screening mammogram was performed 12 month(s) ago. Patient History: Menarche at age 9. First Full-Term at age 25. Postmenopausal. Risk Values: Dalia 5 year model risk: 2.1%. NCI Lifetime model risk: 6.4%. Prior Study Comparison: 05/03/2019 Bilateral Screening Mammogram, [facility]. 02/24/2021 Bilateral Screening Mammogram, [facility]. 02/25/2022 Bilateral MG 3D screening mammo w/cad, [facility]. Tissue Density: There are scattered fibroglandular densities. Findings: Analyzed By CAD. Pattern appears symmetrical and stable. Benign vascular calcifications present bilaterally. There are benign-appearing scattered round calcifications. No significant interval change is evident. No suspicious groups of microcalcifications, spiculated or lobular masses, architectural distortion or other secondary signs of malignancy are mammographically apparent. Overall Assessment: Benign, BI-RAD 2 Management: Screening Mammogram of both breasts in 1 year. A negative mammogram report should not preclude additional follow up of suspicious palpable abnormalities. Patient should continue monthly self breast exam. A clinical breast exam by your physician is recommended on an annual basis and results should be correlated with mammographic findings. Electronically signed and approved by: Raul Esparza D.O. Radiologis
== END | disposition home or self-care (01) ==
LOC: RADMAMWWP 09:54
PROVIDERS: ATTEND Family Medicine
DX: Z12.31 Encounter for screening mammogram for malignant neoplasm of breast (principal); Z78.0 Asymptomatic menopausal state
CPT/HCPCS: 77063; 77067